=== PATIENT | female | born 1965 | race Caucasian/White ===

== ENCOUNTER → 2021-01-23 12:55 | Outpatient (CLI) | payer BC, SELFPAY ==
--- NOTE | 2021-01-23 13:00 | DI.US.S_ITS ---
PROCEDURE: US PELVIC COMPLETE INDICATIONS: EXCESSIVE AND FREQUENT MENTRUATION TECHNIQUE: Real-time scanning was performed of the pelvic organs, with image documentation. Additional endovaginal scanning was necessary due to incomplete visualization of the adnexal and endometrial structures by transabdominal scanning. COMPARISON: None. FINDINGS: Uterus: Uterus is slightly increased in size at 10.7 x 4.6 x 4 cm. The endometrium measures 4.3 mm in combined thickness. The endometrial stripe appears mildly poorly defined. Ovaries: The right ovary measures 1.6 x 1.1 x 1.2 cm. The left ovary measures 2.7 x 1.8 x 2 cm. The ovaries have a normal sonographic appearance. No adnexal masses are seen. Other: No pathologic free abdominal or pelvic fluid. IMPRESSION: The endometrial stripe does not appear abnormally thickened. However, it is poorly defined. Please consider adenomyosis. No ovarian abnormality is seen. If clinically appropriate, a dedicated gynecological protocol MRI (without and with contrast) could be considered for further evaluation (assuming that there is no contraindication). Dictated by: James Andrews M.D. on 01/23/2021 at 13:23 Approved by: James Andrews M.D. on 01/23/2021 at 13:24
== END ==
PROVIDERS: Referring Provider Physician Assistant Medical; Visit Provider Physician Assistant Medical
DX: N92.0 Excessive and frequent menstruation with regular cycle (principal)
CPT/HCPCS: 76830; 76856